=== PATIENT | female | born 1980 | race African-American/Black ===

== ENCOUNTER 2016-12-27 19:07 | Emergency (ER) | payer MEDICARE, MEDICAID ==
[~2016-12-27] VITALS: Ht 165.1 cm; Wt 103.9 kg
[~2016-12-27 19:07] MED LIST: AMLODIPINE BESYL5 MG ORAL; AUGMENTIN 875-1 EAC1 ORAL; DEPAKOTE500 MG PO; DOC-Q-LACE100 M1 ORAL; FANAPT8 MG ORAL; FERROUS SULFAT325 MG ORAL; HYDROCHLOROTHIA25 MG ORAL; LEVOTHYROXINE50 MCG ORAL; LORATADINE10 M1 PO; SINGULAIR10 MG ORAL; WELLBUTRIN XL150 M1 ORAL; XOPENEX HFA15 GM IH; ZENCHENT1 EACH PO
[2016-12-27] MEDS ORDERED: IBUPROFEN600 MG ORAL (20:29)
[2016-12-27 20:35] VITALS: BP_SYST 127; BP_SYST 133; BP_DIAS 83; BP_DIAS 86
--- NOTE | 2016-12-27 22:52 | Emergency Room Report ---
History of Present Illness General Chief Complaint: Pain Present Illness HPI The patient is a 36-year-old female presenting with left ankle pain. She states that she noticed pain and swelling to the area yesterday but denies any known injury. Pain is a 1/10 dull ache it is worse with walking. She denies any other symptoms Allergies: Coded Allergies: No Known Allergies (Unverified , 03/03/14) Patient History Past Medical History: see triage record Pertinent Family History: none Last Menstrual Period: 11/16/16 Now: No : 0 Reviewed Nursing Documentation: PMH: Agreed, PSxH: Agreed Nursing Documentation-PMH Hx Hypertension: Yes Hx Asthma: Yes Review of Systems All Other Systems: negative except mentioned in HPI Physical Exam Vital Signs Date Time Temp Pulse Resp B/P Pulse Ox O2 Delivery O2 Flow Rate FiO2 12/27/16 19:18 98.4 74 16 127/86 97 Room Air Sp02 EP Interpretation: reviewed, normal General Appearance: no apparent distress, alert, GCS 15, non-toxic Head: normocephalic, atraumatic Eyes: bilateral eye PERRL, bilateral eye normal inspection ENT: hearing grossly normal, normal pharynx, no angioedema, normal voice Musculoskeletal: back normal, gait/station normal, normal range of motion, swelling - medial L ankle, tender - TTP over the medial L ankle Neurologic: alert, oriented x3, responsive, motor strength/tone normal, sensory intact, speech normal Psychiatric: judgement/insight normal, memory normal, mood/affect normal, no suicidal/homicidal ideation Skin: normal color, no rash, warm/dry, well hydrated Procedures Splinting Splinting : Consent: Verbal Location: L ankle Pre-Made Type: DOUG wrap Pre-Proc Neuro Vasc Exam: normal Post-Proc Neuro Vasc Exam: normal Patient Tolerated: Well Complications: None Medical Decision Making PA Attestation Dr. Zarate is my supervising physician. Patient management was discussed with my supervising physician Diagnostic Impression: Primary Impression: Left ankle sprain Qualified Codes: S93.402A - Sprain of unspecified ligament of left ankle, initial encounter ER Course The patient is a 36-year-old female presenting for left ankle pain Physical exam: No apparent distress Left ankle: There is tenderness to palpation and edema over the left medial malleolus. Full active range of motion. Sensation intact to light touch. X-ray of the left ankle is unremarkable Left ankle placed in DOUG wrap and the patient is provided crutches. ER precautions are given. Patient given prescription for Motrin and will follow up with primary care physician. Other X-Ray Diagnostic Results Other X-Ray Diagnostic Results : X-Ray ordered: L ankle # of Views/Limited Vs Complete: 3 View Indication: Pain EP Interpretation: Yes Interpretation: no dislocation, no soft tissue swelling, no fractures Impression: No acute disease Interpreting ER Provider: Dr. Elliot NELSON Scribe Text I am acting as scribe for my supervising physician. My supervising physician's interpretation of the L ankle xrays are there are no fractures, dislocations or soft tissue swelling. Last Vital Signs Date Time Temp Pulse Resp B/P Pulse Ox O2 Delivery O2 Flow Rate FiO2 12/27/16 20:35 98.4 74 16 133/83 97 Room Air Status: improved Disposition: HOME, SELF-CARE Condition: Improved Scripts Ibuprofen* (MOTRIN*) 600 Mg Tablet 600 MG ORAL Q8H Y for For Pain, #30 TAB 0 Refills Prov: CLYDE FUENTES 12/27/16 Referrals: NON PHYSICIAN (PCP) Patient Instructions: Ankle Sprain Additional Instructions: I discussed my findings with the patient. All questions and concerns have been answered. Treatment and medication compliance have been addressed. I advised the patient that they need to follow up with PMD in 3-5 days. Return to ED if pain remains or worsens, numbness or tingling occurs, new rash is noticed, fever is noticed, or if needed for any reason. Patient verbalized understanding of discharge instructions. CLYDE FUENTES Dec 27, 2016 22:52
--- NOTE | 2016-12-28 10:53 | Diagnostic Imaging Report ---
Indication: Pain Comparison: None Findings: 3 views of the left ankle obtained. No acute fracture, malalignment, periostitis, or osteochondral defects are identified. Soft tissues are unremarkable. Impression: No acute findings
== END 2016-12-27 20:45 | disposition home or self-care (01) ==
LOC: EMR 20:36
DX: S93.402A Sprain of unspecified ligament of left ankle, initial encounter (principal); X58.XXXA Exposure to other specified factors, initial encounter; Y92.89 Other specified places as the place of occurrence of the external cause; I10 Essential (primary) hypertension; J45.909 Unspecified asthma, uncomplicated
CPT/HCPCS: 29540; 99283